=== PATIENT | male | born 1935 | race Caucasian/White ===

== ENCOUNTER → 2016-07-21 | Outpatient (CLI) | payer MEDICARE, OTHER ==
--- NOTE | 2016-07-21 23:17 | PCVCIMAG ---
EXAM: BILATERAL CAROTID DUPLEX INDICATION: Carotid Occlusive Disease. FINDINGS: Doppler Measurements (centimeters per second): RIGHT: Peak CCA-50, Peak ECA-344, Diastolic ICA-35, Peak ICA-139, ICA/CCA Ratio-2.8. LEFT: Peak CCA-42, Peak ECA-177, Diastolic ICA-27, Peak ICA-169, ICA/CCA Ratio-4.0. RIGHT CAROTID: The carotid bulb has moderate plaque. The proximal internal carotid artery shows 50-60% stenosis. The common carotid artery shows no significant stenosis. The external carotid artery shows 90% stenosis. LEFT CAROTID: The carotid bulb has moderately severe plaque. The proximal internal carotid artery shows 60-70% stenosis. The common carotid artery shows no significant stenosis. The external carotid artery shows greater than 50% stenosis. Antegrade flow in both vertebral arteries. IMPRESSION: 50-60% stenosis of the right internal carotid artery with moderate plaque. 60-70% stenosis of the left internal carotid artery with moderately severe plaque. LOC:OFFICE
== END | disposition home or self-care (01) ==
LOC: PCVCIMAG 09:39
PROVIDERS: ATTEND Internal Medicine Cardiovascular Disease
DX: I65.23 Occlusion and stenosis of bilateral carotid arteries (principal); I25.10 Atherosclerotic heart disease of native coronary artery without angina pectoris; I10 Essential (primary) hypertension; E78.00 Pure hypercholesterolemia, unspecified; I51.7 Cardiomegaly; Z95.1 Presence of aortocoronary bypass graft; Z88.0 Allergy status to penicillin; Z79.82 Long term (current) use of aspirin; Z79.899 Other long term (current) drug therapy; Z95.5 Presence of coronary angioplasty implant and graft
CPT/HCPCS: 80061; 93005; 93880; G0463

== ENCOUNTER → 2017-01-24 | Outpatient (CLI) | payer MEDICARE, OTHER | END | disposition home or self-care (01) | LOC: PCVCCLINIC 11:51 | PROVIDERS: ATTEND Internal Medicine Cardiovascular Disease | DX: I25.10 Atherosclerotic heart disease of native coronary artery without angina pectoris (principal); I10 Essential (primary) hypertension; I65.29 Occlusion and stenosis of unspecified carotid artery; E78.00 Pure hypercholesterolemia, unspecified; R07.9 Chest pain, unspecified; R53.83 Other fatigue; R94.31 Abnormal electrocardiogram [ECG] [EKG]; Z95.1 Presence of aortocoronary bypass graft; Z79.82 Long term (current) use of aspirin; Z79.899 Other long term (current) drug therapy | CPT/HCPCS: 80061; 93005; G0463 ==

== ENCOUNTER → 2017-02-01 | Outpatient (CLI) | payer MEDICARE, OTHER ==
--- NOTE | 2017-02-01 16:15 | PCVCIMAG ---
APPROVED REPORT Laterality: Bilateral Patient Location: Out-Patient Indications Stenosis Risk Factors Hypertension: Hyperlipidemia Doppler Spectral Velocity Analysis PSV / EDVPSV / EDV ECA (R) 194 / 19 cm/sECA (L) 39 / 0 cm/s dICA (R) 70 / 17 cm/sdICA (L) 81 / 20 cm/s Edita (R) 95 / 21 cm/smICA (L) 86 / 19 cm/s pICA (R) 116 / 23 cm/spICA (L) 133 / 24 cm/s Bulb (R) 53 / 12 cm/sBulb (L) 87 / 22 cm/s dCCA (R) 46 / 13 cm/sdCCA (L) 35 / 10 cm/s mCCA (R) 39 / 9 cm/smCCA (L) 46 / 8 cm/s Vert (R) 31 / 11 cm/sVert (L) 49 / 13 cm/s ICA/CCA 2.52 ICA/CCA 2.88 Basic Measurements Blood Pressure: Pulses: Right Left RightLeft Brachial(Sitting) 156/[id number]/86mmHgTemporal Real Time B-Mode Imaging Vert. (R)AntegradeVert. (L)Antegrade Findings The right carotid bulb has moderate calcified plaque. The right proximal internal carotid artery shows 40-50% stenosis. The right common carotid artery shows no significant stenosis. The right external carotid artery shows no significant stenosis. The left carotid bulb has moderately severe calcified plaque. The left proximal internal carotid artery shows 60-70% stenosis. The left common carotid artery shows <40% stenosis. The left external carotid artery shows no significant stenosis. Conclusion 1. Right internal carotid atery stenosis (40-50%) 2. Left internal carotid artery stenosis (60-70%) 3. Antegrade vertebral flow
--- NOTE | 2017-02-01 17:05 | PCVCIMAG ---
APPROVED REPORT Exam: Stress Echocardiogram Indication: CAD s/p CABG,Fatigue,HTN Patient Location: Echo lab Stress Nurse: Nina Coffey RN Room #: 3 Status: routine Ht: 5 ft 10 in HR: 90 bpm BP: 144/84 mmHgBMI: 28.7 Rhythm: NSR Medical History Medical History: CAD s/p CABG, Fatigue, HTN Cardiac Risk Factors: HTN, PAD Previous Cardiac Procedures: CABGPCI Pretest Chest Pain Characteristics: No chest pain Exercise History: Indeterminate Procedure The patient underwent an Exercise Stress Test using the Storm Protocol. Blood pressure, heart rate, and EKG were monitored. An Echocardiogram was performed by dialysis technician in four stages in quad fashion. At peak stress, four selected images were obtained and placed side by side with resting images for comparison. Stress Test Details Stress Test: Exercise stress testing was performed using a Storm protocol. HR Resting HR: 90 bpmMax Heart Rate (APMHR): 141 bpm Max HR Achieved: 122 bpmTarget HR (85% APMHR): 119 bpm % of APMHR: 86 Recovery HR: 91 bpm HR response to stress: Normal HR response to stress BP Resting BP: 144/84 mmHg Max BP: 164/80 mmHg Recovery BP: 148/78 mmHg ECG Resting ECG: Sinus Rhythm, nonspecific T abnormalities Stress ECG: Sinus Rhythm ST Change: Downsloping ST depression consistent with known anatomy Maximum ST Deviation: 2.9 mm Arrhythmia: Occasional PVCs Recovery ECG: Sinus Rhythm Recovery ST Change: Downsloping ST depression consistent with known anatomy Recovery ST Deviation: 2 mm Recovery Arrhythmia: None Clinical Reason for Termination: Maximal effort Stress Symptoms: none Exercise duration: 6 min 47 sec Highest Stage Achieved: Stage 3: 3.4 mph at 14% grade. Exercise capacity: 9.3 METs Overall Exercise Capacity for Age: Average Angina Score: None Stress ECG Conclusion The patient exercised according to the Storm Protocol for 6:47 minutes, achieving a maximum work level of 9.3 METS. The resting heart rate of 90 bpm, annie to a maximal level of 122 bpm. This value represents 86 % of the maximal, age-predicted heart rate. The resting blood pressure of 144/84 mmHg, annie to a maximum blood pressure of 164/80 mmHg. The exercise was stopped due to fatigue. Bennett Treadmill Score is -8.5 which is Moderate risk. Pre-Stress Echo The resting Echocardiogram showed normal left ventricular contractility with an estimated Ejection Fraction of about 55-60%. Normal wall motion in all segments on baseline images. Post-Stress Echo The stress Echocardiogram showed normal left ventricular contractility with an estimated Ejection Fraction of about 65-70%. Normal augmentation of wall motion in all segments on post stress images. Clinical No clinical or ECG evidence for ischemia. Conclusion Clinical Response: Non-ischemic Exercise Capacity: Average Stress ECG Response: Ischemic Stress Echo Images: Non-ischemic No echocardiographic evidence for exercise induced ischemia. Normal stress echocardiogram with maximal exercise stress. EKG changes are consistent with prior study and known anatomy. <Conclusion> No echocardiographic evidence for exercise induced ischemia. Normal stress echocardiogram with maximal exercise stress. EKG changes are consistent with prior study and known anatomy.
== END | disposition home or self-care (01) ==
LOC: PCVCIMAG 14:10
PROVIDERS: ATTEND Internal Medicine
DX: I65.23 Occlusion and stenosis of bilateral carotid arteries (principal); I25.10 Atherosclerotic heart disease of native coronary artery without angina pectoris; I10 Essential (primary) hypertension; E78.5 Hyperlipidemia, unspecified; R07.89 Other chest pain; R94.31 Abnormal electrocardiogram [ECG] [EKG]; R53.83 Other fatigue; Z95.1 Presence of aortocoronary bypass graft
CPT/HCPCS: 93325; 93351; 93880

== ENCOUNTER → 2017-07-06 | Outpatient (CLI) | payer MEDICARE, OTHER | END | disposition home or self-care (01) | LOC: PCVCCLINIC 11:16 | DX: I25.10 Atherosclerotic heart disease of native coronary artery without angina pectoris (principal); I65.29 Occlusion and stenosis of unspecified carotid artery; I10 Essential (primary) hypertension; E78.00 Pure hypercholesterolemia, unspecified; Z95.1 Presence of aortocoronary bypass graft; Z79.82 Long term (current) use of aspirin | CPT/HCPCS: 80061; 93005; G0463 ==

== ENCOUNTER → 2018-08-17 | Outpatient (CLI) | payer MEDICARE, OTHER ==
--- NOTE | 2018-08-17 13:56 | PCVCIMAG ---
APPROVED REPORT Indications Stenosis Risk Factors Hypertension: Hyperlipidemia CAD Doppler Spectral Velocity Analysis PSV / EDVPSV / EDV ECA (R) 184 / 16 cm/sECA (L) 41 / 5 cm/s dICA (R) 68 / 22 cm/sdICA (L) 61 / 17 cm/s Edita (R) 77 / 24 cm/smICA (L) 90 / 21 cm/s pICA (R) 106 / 25 cm/spICA (L) 126 / 27 cm/s Bulb (R) 73 / 26 cm/sBulb (L) 69 / 22 cm/s dCCA (R) 42 / 14 cm/sdCCA (L) 39 / 10 cm/s mCCA (R) 40 / 12 cm/smCCA (L) 45 / 10 cm/s Vert (R) 27 / 10 cm/sVert (L) 48 / 14 cm/s ICA/CCA 2.52 ICA/CCA 2.78 Basic Measurements Blood Pressure: Pulses: Right Left RightLeft Brachial(Sitting) 146/40pvDe478/80mmHgTemporal Real Time B-Mode Imaging Vert. (R)AntegradeVert. (L)Antegrade Findings RIGHT CAROTID: The carotid bulb has moderately severe plaque. The proximal internal carotid artery shows 40% stenosis. The common carotid artery shows no significant stenosis. The external carotid artery shows 60% stenosis. LEFT CAROTID: The carotid bulb has moderately severe plaque. The proximal internal carotid artery shows 40-50% stenosis. The common carotid artery shows no significant stenosis. The external carotid artery shows no significant stenosis Conclusion 40% stenosis of the right internal carotid artery with moderately severe plaque. 40-50% stenosis of the left internal carotid artery with moderately severe plaque.
--- NOTE | 2018-08-19 09:50 | PCVCIMAG ---
APPROVED REPORT Study performed: 08/17/2018 13:58:34 EXAM: Comprehensive 2D, Doppler, and color-flow Echocardiogram Patient Location: Echo lab Room #: 2Status: routine BSA: 2.09 HR: 64 bpmBP: 152/80 mmHg Rhythm: NSR Other Information Study Quality: Good Risk Factors: Cardiac Risk Factors: HTN Indications Aortic Valve Disease CAD Hypertension/HDD s/p CABG 2D Dimensions IVSd: 8.67 (7-11mm)LVOT Diam: 22.27 (18-24mm) LVDd: 55.46 mm PWd: 8.83 (7-11mm)Ascending Ao: 38.07 (22-36mm) LVDs: 44.11 (25-40mm) Left Atrium: 36.24 (27-40mm) Aortic Root: 32.71 mm LV Single Plane 4CH: 65.08 % LV Single Plane 2CH: 78.82 % Biplane EF: 71.0 % Volumes Left Atrial Volume (Systole) Single Plane 4CH: 49.17 mLSingle Plane 2CH: 60.87 mL Biplane LA Volume: 58.00 mLLA ESV Index: 28.00 mL/m2 Aortic Valve AoV Peak Vitaly.: 2.88 m/s AO Peak Gr.: 33.59 mmHgLVOT Max P.58 mmHg AO Mean Gr.: 20.98 mmHgLVOT Mean P.62 mmHg AO V2 Mean: 2.21 m/sLVOT Max V: 0.83 m/s AO V2 VTI: 71.29 cmLVOT Mean V: 0.60 m/s CARLTON (VTI): 1.12 [id number] V1 VTI: 20.51 cm CARLTON Vmax: 1.12 cm2 AI Vmax: 4.73 m/sSV (LVOT): 79.84 mL AI Love: 2.64 m/s2 AI PHT: 520.13 ms Mitral Valve E/A Ratio: 0.8 MV Decel. Time: 250.30 ms MV E Max Vitaly.: 0.65 m/s MV A Vitaly.: 0.79 m/s IVRT: 110.73 ms TDI E/Lateral E': 9.29E/Medial E': 9.29 Medial E' Vitaly.: 0.07 m/s Lateral E' Vitaly.: 0.07 m/s Pulmonary Valve PV Peak Vitaly.: 1.08 m/sPV Peak Gr.: 4.64 mmHg Pulmonary Vein P Vein S: 0.51 m/sP Vein A: 0.33 m/s P Vein D: 0.42 m/sP Vein A Dur.: 138.4 msec P Vein S/D Ratio: 1.21 Tricuspid Valve TR Peak Vitaly.: 2.03 m/s TR Peak Gr.: 16.56 mmHg TV Vmax: 0.71 m/sPA Pressure: 24.00 mmHg Left Ventricle The left ventricle is normal size. There is normal LV segmental wall motion. There is normal left ventricular wall thickness. Left ventricular systolic function is normal. The left ventricular ejection fraction is within the normal range. LVEF is >70%. Grade I - abnormal relaxation pattern. Right Ventricle The right ventricle is normal size. The right ventricular systolic function is normal. Atria The left atrium size is normal. The right atrium size is normal. Aortic Valve Aortic valve is probably trileaflet. Moderate/severe aortic valve sclerosis. Mild to moderate aortic regurgitation. Moderate aortic stenosis. Highest mean aortic valve gradient is 21mmHg. Peak aortic valve gradient is 33mmHg. Calculated CARLTON by the continuity equation is 1.1cm2. Mitral Valve The mitral valve is normal in structure. There is no mitral valve regurgitation noted. No evidence of mitral valve stenosis. Tricuspid Valve The tricuspid valve is normal in structure. Mild tricuspid regurgitation with a PA pressure of 24 mmHg. Pulmonic Valve The pulmonary valve is normal in structure. Mild pulmonic regurgitation. Great Vessels The aortic root is normal in size. The ascending aorta is borderline dilated. Aortic arch is 3.5cm in caliber. IVC is normal in size and collapses >50% with inspiration. Pericardium There is no pericardial effusion. There is no pleural effusion. <Conclusion> The left ventricle is normal size. LVEF is >70%. Grade I - abnormal relaxation pattern. The right ventricle is normal size. The left atrium size is normal. Aortic valve is probably trileaflet. Moderate/severe aortic valve sclerosis. Mild to moderate aortic regurgitation. Moderate aortic stenosis. Highest mean aortic valve gradient is 21mmHg. Peak aortic valve gradient is 33mmHg. Calculated CARLTON by the continuity equation is 1.1cm2. There is no mitral valve regurgitation noted. Mild tricuspid regurgitation with a PA pressure of 24 mmHg. The aortic root is normal in size. The ascending aorta is borderline dilated. Aortic arch is 3.5cm in caliber. There is no pericardial effusion.
== END | disposition home or self-care (01) ==
LOC: PCVCIMAG 13:24
PROVIDERS: ATTEND Internal Medicine Cardiovascular Disease
DX: I65.23 Occlusion and stenosis of bilateral carotid arteries (principal); I08.2 Rheumatic disorders of both aortic and tricuspid valves; I25.10 Atherosclerotic heart disease of native coronary artery without angina pectoris; E78.00 Pure hypercholesterolemia, unspecified; I10 Essential (primary) hypertension; Z79.82 Long term (current) use of aspirin
CPT/HCPCS: 36415; 80061; 93005; 93306; 93880; G0463

== ENCOUNTER → 2018-11-19 | Outpatient (CLI) | payer MEDICARE, OTHER ==
--- NOTE | 2018-11-19 13:04 | PCVCIMAG ---
APPROVED REPORT Study performed: 11/19/2018 10:57:57 Exam: Stress Echocardiogram Indication: CAD s/p CABG Patient Location: Echo lab Stress Nurse: Vicki Maldonado RN Status: routine Ht: 5 ft 11 in HR: 71 bpm BP: 140/70 mmHg Rhythm: NSR Procedure The patient underwent an Exercise Stress Test using the Storm Protocol. Blood pressure, heart rate, and EKG were monitored. An Echocardiogram was performed by field artillery targeting technician in four stages in quad fashion. At peak stress, four selected images were obtained and placed side by side with resting images for comparison. Stress Test Details Stress Test: Exercise stress testing was performed using a Storm protocol. HR Resting HR: 71 bpmMax Heart Rate (APMHR): 139 bpm Max HR Achieved: 111 bpmTarget HR (85% APMHR): 118 bpm % of APMHR: 79 Recovery HR: 77 bpm HR response to stress: Normal HR response to stress BP Resting BP: 140/70 mmHg Max BP: 168/78 mmHg Recovery BP: 131/62 mmHg BP response to stress: Normal blood pressure response to stress. ECG Resting ECG: Sinus Rhythm Stress ECG: Sinus Rhythm ST Change: Ischemic ST depression Maximum ST Deviation: -3.1 mm Arrhythmia: PACs Recovery ECG: Sinus Rhythm Recovery ST Change: Downsloping ST depression Recovery Arrhythmia: None Clinical Reason for Termination: Maximal effort Stress Symptoms: Dyspnea Exercise duration: 7 min 3 sec Highest Stage Achieved: Stage 3: 3.4 mph at 14% grade. Exercise capacity: 10.1 METs Overall Exercise Capacity for Age: Normal Scale: Active Angina Score: None Stress ECG Conclusion Bennett Treadmill Score is 22.5 which is Low risk. Pre-Stress Echo The resting Echocardiogram showed normal left ventricular contractility with an estimated Ejection Fraction of about 50-55%. The resting echocardiogram demonstrated normal wall motion in all wall segments. Post-Stress Echo The stress Echocardiogram showed left ventricular contractility with an estimated Ejection Fraction of about 60-65%. Compared to rest, there were no stress-induced wall motion abnormalities. Clinical No clinical or evidence for ischemia. ECG is postive for ischemia consistent with anatomy and previous stress testing. Conclusion Clinical Response: Non-ischemic Exercise Capacity: Average Stress ECG Response: Ischemic- consistent with anatomy Stress Echo Images: Non-ischemic Non-diagnostic study due to inability of the patient to achieve 85% of maximal HR consider nuclear stress testing for future follow up of CAD. Other Information Study Quality: Adequate <Conclusion> Non-diagnostic study due to inability of the patient to achieve 85% of maximal HR consider nuclear stress testing for future follow up of CAD.
== END | disposition home or self-care (01) ==
LOC: PCVCIMAG 10:49
PROVIDERS: ATTEND Internal Medicine Cardiovascular Disease
DX: I25.10 Atherosclerotic heart disease of native coronary artery without angina pectoris (principal); I10 Essential (primary) hypertension; I77.9 Disorder of arteries and arterioles, unspecified; R94.39 Abnormal result of other cardiovascular function study; E78.00 Pure hypercholesterolemia, unspecified; I35.0 Nonrheumatic aortic (valve) stenosis; Z95.1 Presence of aortocoronary bypass graft
CPT/HCPCS: 93351